=== PATIENT | female | born 2005 | race American Indian/Alaskan Native ===

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

== ENCOUNTER 2025-06-17 13:20 | Emergency (ER) | payer SELFPAY ==
[2025-06-17 14:03] LABS: APPEARANCE,URINE SLIGHTLY CLOUDY (CLEAR); GLUCOSE,URINE NEGATIVE (NEGATIVE); OCCULT BLOOD,URINE LARGE (NEGATIVE)
[2025-06-17 14:09] LABS: EPITHELIAL CELLS,URINE FEW /HPF (NOT SEEN)
[2025-06-17 14:37] LABS: BASOPHILS PERCENT AUTO 0.9 % (0.0-1.0); EOSINOPHILS PERCENT AUTO 2.9 % (1.0-3.0); LYMPHOCYTES PERCENT AUTO 23.6 % (20.5-50.1); MONOCYTES PERCENT AUTO 6.2 % (2-8); NEUTROPHILS PERCENT AUTO 66.4 % (42.2-75.2); PLATELET COUNT,PLT 369 10^3/uL (150-450); RED BLOOD CELL COUNT 4.54 10^6/uL (4.2-5.4); WHITE BLOOD CELL COUNT,WBC 8.7 10^3/uL (5.0-10.0)
[2025-06-17 14:52] LABS: BLOOD UREA NITROGEN,BUN 10.0 mg/dL (7-18); CARBON DIOXIDE,CO2 28.0 mmol/L (21-32); CHLORIDE,CL 106.0 mmol/L (98-107); CREATININE 0.82 mg/dL (0.55-1.02); EST CRCL DRUG DOSING (CG) 107.31 mL/min; GLUCOSE RANDOM 94.0 mg/dL (70-99); POTASSIUM,K 4.0 mmol/L (3.5-5.1); SODIUM,NA 143.0 mmol/L (136-145)
[2025-06-17 14:59] LABS: ESTIMATED GFR 106.0 mL/min (>=60)
[2025-06-17 15:14] VITALS: BP 111/75; PULSE 62
== END 2025-06-17 15:11 | disposition home or self-care (01) ==
LOC: DL.ED 13:20
DX: O21.9 Vomiting of pregnancy, unspecified (principal); Z3A.01 Less than 8 weeks gestation of pregnancy
CPT/HCPCS: 36415; 80048; 81001; 81025; 83735; 85025; 87086; 99282; 99284